=== PATIENT | male | born 1980 | race Caucasian/White ===

== ENCOUNTER 2016-10-16 17:57 | Emergency (ER) | payer OTHER ==
[~2016-10-16] VITALS: Ht 170.2 cm; Wt 85.3 kg
[2016-10-16 17:57] VITALS: BP 155/88
[2016-10-16] MEDS ORDERED: AUGM875T28 PO (19:20)
[2016-10-16] MEDS ORDERED: IBUP80TA PO (19:20)
[2016-10-16] MEDS ORDERED: IBUPROFEN 800 MG TAB PO ONE (19:30)
[2016-10-16] MEDS ORDERED: NORCO 5/325MG TABLET (BULK FOR ED) PO ONE (19:30)
[2016-10-16] MEDS ORDERED: AUGMENTIN 875 MG TAB PO ONE (19:30)
== END 2016-10-16 20:01 | disposition home or self-care (01) ==
LOC: M ED 17:57
DX: K02.9 Dental caries, unspecified (principal); K04.7 Periapical abscess without sinus; Z72.0 Tobacco use

== ENCOUNTER → 2019-07-05 | Outpatient (REF) | payer SELFPAY ==
[~2019-07-05] MED LIST: AUGM875T28 PO; IBUP80TA PO
[2019-07-05 17:14] LABS: BASO % 0.2 % (0.0-1.0); EOS # 0.1 10^3/uL (0.0-0.5); EOS % 0.9 % (0.0-3.0); HEMATOCRIT 40.7 % (42.0-52.0); HEMOGLOBIN 13.4 g/dl (13.5-17.5); LYMPH # 1.6 10^3/uL (1.5-5.0); MEAN CORPUSCULAR HEMOGLOBIN 28.3 pg (27.0-33.0); MEAN CORPUSCULAR HGB CONC 32.9 g/dl (32.0-36.5); MEAN CORPUSCULAR VOLUME 85.9 fl (80.0-96.0); MONO # 0.4 10^3/uL (0.0-0.8); MONO % 3.9 % (0.0-5.0); NEUTROPHILS # 6.9 10^3/uL (1.5-8.5); NEUTROPHILS % 76.6 % (36.0-66.0); PLATELET COUNT, AUTOMATED 381 10^3/uL (150-450); RED BLOOD COUNT 4.74 10^6/uL (4.30-6.10)
[2019-07-05 17:19] LABS: BLOOD UREA NITROGEN 11 MG/DL (7-18); CREATININE FOR GFR 0.73 MG/DL (0.70-1.30); GLUCOSE, FASTING 94 MG/DL (70-100)
[2019-07-05 17:20] LABS: ALBUMIN 3.4 GM/DL (3.2-5.2); ALT/SGPT 48 U/L (12-78); BILIRUBIN,TOTAL 0.8 MG/DL (0.2-1.0); CARBON DIOXIDE LEVEL 30 MEQ/L (21-32); CHLORIDE LEVEL 98 MEQ/L (98-107); CHOLESTEROL LEVEL 196 MG/DL (<200); CHOLESTEROL RISK RATIO 6.322 (<5); FREE T4 1.43 NG/DL (0.76-1.46); GLOMERULAR FILTRATION RATE > 60.0 (>60); HDL CHOLESTEROL 31 MG/DL (>40); LDL CHOLESTEROL 146 MG/DL (<100); NON-HDL-C 165 MG/DL; POTASSIUM SERUM 4.2 MEQ/L (3.5-5.1); SODIUM LEVEL 135 MEQ/L (136-145); THYROID STIMULATING HORMONE 0.739 uIU/ML (0.358-3.740); TOTAL PROTEIN 8.5 GM/DL (6.4-8.2); TRIGLYCERIDES LEVEL 95 MG/DL (<150)
[2019-07-05 17:21] LABS: TOTAL 25(OH) VITAMIN D 11.1 NG/ML (30.0-100.0)
[2019-07-05 17:29] LABS: HEMOGLOBIN A1c 5.5 %
== END ==
LOC: M LAB REF 16:06
PROVIDERS: ATTEND Nurse Practitioner Family
DX: Z13.9 Encounter for screening, unspecified (principal); R52 Pain, unspecified; F19.11 Other psychoactive substance abuse, in remission; R03.0 Elevated blood-pressure reading, without diagnosis of hypertension; R50.9 Fever, unspecified

== ENCOUNTER → 2019-07-07 | Outpatient (REF) | payer SELFPAY ==
[2019-07-07 21:03] LABS: CHLAMYDIA DNA AMPLIFICATION NEGATIVE (NEGATIVE); GC DNA AMPLIFICATION NEGATIVE (NEGATIVE)
== END ==
LOC: M LAB REF 17:38
PROVIDERS: ATTEND Nurse Practitioner Family
DX: Z13.9 Encounter for screening, unspecified (principal); R52 Pain, unspecified; F19.11 Other psychoactive substance abuse, in remission; R03.0 Elevated blood-pressure reading, without diagnosis of hypertension; R50.9 Fever, unspecified

== ENCOUNTER 2019-08-09 13:07 | Emergency (ER) | payer SELFPAY ==
[~2019-08-09] VITALS: Ht 170.2 cm; Wt 76.6 kg
[2019-08-09] MEDS ORDERED: SUBO8MIS (13:12)
[2019-08-09] MEDS ORDERED: LIDOCAINE 5% (LIDODERM) PATCH TD ONE (13:45)
[2019-08-09] MEDS ORDERED: KETOROLAC 30 MG/ML 1ML VIAL IM ONE (13:45)
[2019-08-09] MEDS ORDERED: IBUP80TA PO (13:50)
[2019-08-09] MEDS ORDERED: LIDO5DIS41 TOP (13:50)
[2019-08-09 14:05] VITALS: BP 137/79
[2019-08-09] MEDS ORDERED: **NOTE PATIENT COMMENT** MISC XX SCH (21:00)
== END 2019-08-09 14:07 | disposition home or self-care (01) ==
LOC: M ED 13:07
DX: S39.012A Strain of muscle, fascia and tendon of lower back, initial encounter (principal); X58.XXXA Exposure to other specified factors, initial encounter; Y92.9 Unspecified place or not applicable; Y99.8 Other external cause status
CPT/HCPCS: 99283; J1885